=== PATIENT | female | born 1985 | race Caucasian/White ===

== ENCOUNTER 2019-08-13 05:28 | Inpatient (IN) | payer OTHER ==
[~2019-08-13] VITALS: Ht 162.6 cm; Wt 85.3 kg
[2019-08-13] MEDS ORDERED: OXYTOCIN/0.9 % SODIUM CHLORIDE 1,000 ML IV SCH (06:36)
[2019-08-13] MEDS ORDERED: LR 1,000 ML IV SCH (06:36)
[2019-08-13] MEDS ORDERED: LR 1,000 ML IV ONE (06:36)
[2019-08-13] MEDS ORDERED: TERBUTALINE SULFATE 1 MG/ML VIAL SUBCUT ONE (06:45)
[2019-08-13] MEDS ORDERED: MORPHINE 4 MG/ML INJ. SYRINGE IVP PRN (06:45)
[2019-08-13 06:46] VITALS: BP_SYST 121
[2019-08-13 07:38] LABS: BASOPHILS % (AUTO) 0.4 % (0.0-2.0); EOSINOPHILS # (AUTO) 0.1 K/uL (0.0-0.4); EOSINOPHILS % (AUTO) 0.6 % (0.0-4.0); HEMATOCRIT 39.2 % (36-48); HEMOGLOBIN 13.2 g/dL (12.0-16.0); LYMPHOCYTES # (AUTO) 1.4 K/uL (1.0-5.5); LYMPHOCYTES % (AUTO) 13.6 % (20.5-51.5); MEAN CORPUSCULAR HEMOGLOBIN 30 pg (27-31); MEAN CORPUSCULAR HGB CONC 34 % (32-36); MEAN CORPUSCULAR VOLUME 90 fL (79.0-98.0); MONOCYTES # (AUTO) 0.4 K/uL (0.0-1.0); MONOCYTES % (AUTO) 3.5 % (1.7-9.3); NEUTROPHILS # (AUTO) 8.2 K/uL (1.8-7.7); NEUTROPHILS % (AUTO) 81.9 % (40.0-70.0); PLATELET COUNT (AUTO) 199 K/uL (130-430); RED BLOOD CELL COUNT(AUTO) 4.36 MIL/uL (4.2-6.2); RED CELL DISTRIBUTION WIDTH 13.5 % (9.0-15.0)
[2019-08-13] MEDS: MORPHINE SULFATE 10 MG/ML VIAL IVP PRN ×2 (10:05→13:05)
[2019-08-13] MEDS ORDERED: MORPHINE SULFATE 10 MG/ML VIAL ONE (10:18)
[2019-08-13] MEDS ORDERED: OXYTOCIN/0.9 % SODIUM CHLORIDE 1,000 ML IV ONE (15:02)
[2019-08-13] MEDS ORDERED: DERMOPLAST SPRAY TP PRN (15:15)
[2019-08-13] MEDS ORDERED: METHYLERGONOVINE MALEATE 0.2 MG TABLET PO PRN (15:15)
[2019-08-13] MEDS ORDERED: WITCH HAZEL LEAF 1 MED.PAD MED.PAD TP PRN (15:15)
[2019-08-13] MEDS ORDERED: HYDROcodone/ACETAMIN 5-325 MG TAB (NORCO/ VICODIN) PO PRN (15:15)
[2019-08-13] MEDS ORDERED: OXYCODONE/ACETAMINOPHEN 5-325 TABLET PO PRN ×2 (15:15)
[2019-08-13] MEDS ORDERED: ACETAMINOPHEN 325 MG TABLET PO PRN (15:15)
[2019-08-13] MEDS ORDERED: LANOLIN 7 GM OINT. TP PRN (15:15)
[2019-08-13] MEDS ORDERED: RHO(D) IMMUNE GLOBULIN/MALTOSE 1500 UNITS/1.3 ML (WINHRO) IM PRN (15:15)
[2019-08-13] MEDS: DOCUSATE SODIUM 100 MG CAPSULE PO PRN (21:19)
[2019-08-14] MEDS ORDERED: RHO(D) IMMUNE GLOBULIN/MALTOSE 1500 UNITS/1.3 ML (WINHRO) IM ONE (06:00)
[2019-08-14 07:24] LABS: HEMOGLOBIN 13.3 g/dL (12.0-16.0)
[2019-08-14] MEDS: DOCUSATE SODIUM 100 MG CAPSULE PO PRN (11:22)
== END 2019-08-15 16:35 | disposition home or self-care (01) | DRG 807 ==
LOC: SPU 05:28 → INTOOBSV 05:28 → OBSVTOIN 06:30 → SPU 17:59
PROVIDERS: ADMIT Obstetrics & Gynecology; ATTEND Specialist
PROC: 10E0XZZ Delivery of Products of Conception, External Approach (ICD-10-PCS; principal; 2019-08-13)
PROC: 0KQM0ZZ Repair Perineum Muscle, Open Approach (ICD-10-PCS; 2019-08-13)
PROC: 3E0234Z Introduction of Serum, Toxoid and Vaccine into Muscle, Percutaneous Approach (ICD-10-PCS; 2019-08-14)
DX: O26.893 Other specified pregnancy related conditions, third trimester (principal); Z37.0 Single live birth; O70.1 Second degree perineal laceration during delivery; Z3A.39 39 weeks gestation of pregnancy; Z67.11 Type A blood, Rh negative
CPT/HCPCS: 36415; 81002-TC; 85018-TC; 85025; 86592; 86870; 86886; 86900; 86901; G0378; J2270; J2590; J2790